=== PATIENT | female | born 1950 | race Caucasian/White ===

== ENCOUNTER → 2017-05-14 | Outpatient (CLI) | payer OTHER ==
--- NOTE | ~2017-05-14 | CNG ---
[facility] [place] [address] CYTO-NONGYN REPORT PROCEDURE Name: BARBARA RAHMAN Room #: REG [facility].#: [id number] Admission: 05/14/17 Date of : 46 Discharge: Report #: [id number] Path Case #: [id number] CYTOPATHOLOGY REPORT COLLECTION DATE: 05/14/2017 RECEIVED DATE: 05/14/2017 SUBMITTING PHYS: Dr. Wiley Ortega OTHER PHYS: Dr. Joseph Taveras CLINICAL HISTORY: Thyroid nodule. SPECIMEN(S) RECEIVED: A.US guded Fine needle aspiration, thyroid nodule * * * * * * * * * * * * FINAL DIAGNOSIS: A. Thyroid, nodule, US guded Fine needle aspiration: BETHESDA CATEGORY II. SPECIMEN CONSISTS OF SCANT FOLLICULAR CELLS, WATERY AND DENSE COLLOID, ALONG WITH INFLAMMATORY CELLS, FAVOR A COLLOID NODULE, SEE COMMENT. - Interpretation limited by scant cellularity and air-drying artifact. COMMENT: Examination shows one slide with groups of thyroid follicular cells in macro as well as microfollicles. Remainder smears prepared from the three passes show no cells along with lubricant. The specimen therefore is barely adequate with limited cells available for review. The thin prep container has no colloid or follicular cells to examine. Nuclear features of papillary thyroid carcinoma are not identified in the few cells present. Findings may be suggestive of a colloid nodule; however, please note sample may not be civil rights representative. Correlate clinically and follow-up as indicated. (IUV; 05/15/17) PATHOLOGIST: Tawana Sweet M.D. REPORT ELECTRONICALLY SIGNED BY: Tawana Sweet M.D. DATE/TIME: 05/16/2017 10:17 * * * * * * * * * * * * GROSS PATHOLOGY: A. US guded Fine needle aspiration, thyroid nodule: The specimen is labeled "Barbara Rahman" and consists of four fixed slides, four air dried slides. Thirty mL of clear colorless fluid in fixative from the needle rinse is also submitted and one ThinPrep slide and a cell block were prepared from this material. (clt 05.14.2017) Also received is the RNARetain vial which will be held for molecular studies if needed. [address] [address] CYTO-NONGYN REPORT PROCEDURE Name: BARBARA RAHMAN Room #: REG [facility].#: [id number] Admission: 05/14/17 Date of : 46 Discharge: Report #: [id number] Path Case #: [id number] POWER GENERATION TECHNICIAN(S): [facility] INITIAL CPT CODE(S): A; 75978, 16143 Professional services performed by [facility] at [address], [place] [address] Technical services performed by [facility] at [address] [place] [address]., [address], [place] [address]. [facility], [address] [place] [address] PHONE: [phone] DIRECTOR: Elliott Valdivia M.D. * * * END OF REPORT * * *
== END | disposition home or self-care (01) ==
LOC: ULTRA 09:27
DX: D34 Benign neoplasm of thyroid gland (principal)